=== PATIENT | female | born 1955 | race Native Hawaiian/Other Pacific Islander ===

== ENCOUNTER 2017-05-11 03:10 | Inpatient (IN) | payer BC ==
[~2017-05-11] VITALS: Ht 160 cm; Wt 63.5 kg
[~2017-05-11 03:10] MED LIST: AMLO5TAB4 PO; CLON0.1T PO
--- NOTE | 2017-05-11 03:40 | NUR ---
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 Her care continue as MD is at bedside . Addendum: 05/11/17 at 0608 by PRACHI Pt is noted ASA 324MG, [place] 0.4mg , 0.9NS IVF, O2 2LITER Nasal cannula, CXR done after an abnormal EKG. Her care continue as she is been admitted under DR. Shen.
[2017-05-11] MEDS ORDERED: methylPREDNISolone SOD SUCC 125 MG/2 ML VIAL IV ONE (03:47)
[2017-05-11] MEDS ORDERED: MORPHINE SULFATE 2 MG/1 ML DISP.SYRIN IV ONE (04:00)
[2017-05-11] MEDS ORDERED: IV NORMAL SALINE 500 ML IV ONE ×2 (04:00→11:20)
[2017-05-11] MEDS ORDERED: diphenhydrAMINE 50 MG/1 ML VIAL IV ONE (04:00)
[2017-05-11] MEDS ORDERED: ONDANSETRON IV *ER 4 MG/2 ML VIAL IV ONE (04:00)
[2017-05-11] MEDS ORDERED: methylPREDNISolone SOD SUCC 125 MG/2 ML VIAL ONE (04:08)
[2017-05-11] MEDS ORDERED: diphenhydrAMINE 50 MG/1 ML VIAL ONE (04:09)
[2017-05-11] MEDS ORDERED: ONDANSETRON 4 MG/2 ML VIAL ONE (04:10)
[2017-05-11] MEDS ORDERED: MORPHINE SULFATE 2 MG/1 ML DISP.SYRIN ONE (04:10)
--- NOTE | 2017-05-11 04:46 | NUR ---
Pt is noted sleeping with family at bedside as Bendry 50mg IVP, SOLU-MEDROL 60MG IVP, ZOFRAN 4MG IVP, MORPHINE 2MG IVP and 0.9ns IVF,which is effective with blood presures 137/82, HR65, 95% on room air, RR18. Her care continue.
--- NOTE | 2017-05-11 05:38 | NUR ---
Pt is noted with abnormal EKG and 02 2liter nasal cannular, IVF 09NS, ASA 32MG po, Nitroquick 0.4mg SL, Nitro-BID to kleft chest. Her care continue as she will be admitted under Hermelinda RUSS. Her care continue as report will be given to the receiving nurse.
[2017-05-11] MEDS ORDERED: NITROGLYCERIN OINT 1 GM PACKET TP ONE ×2 (05:45→06:04)
[2017-05-11] MEDS ORDERED: NITROGLYCERIN 0.4 MG/TAB BOTTLE SL ONE ×2 (05:45→06:03)
[2017-05-11] MEDS ORDERED: ASPIRIN 81 MG TAB.CHEW PO ONE (05:45)
[2017-05-11] MEDS ORDERED: ASPIRIN 81 MG TAB.CHEW ONE ×2 (05:52→06:03)
[2017-05-11] MEDS ORDERED: MAGNESIUM HYDROXIDE 30 ML LIQUID UDC PO PRN (06:00)
[2017-05-11] MEDS ORDERED: ONDANSETRON 4 MG/2 ML VIAL IV PRN (06:00)
[2017-05-11] MEDS ORDERED: HYDROCODONE/APAP 5-325MG TABLET PO PRN (06:00)
[2017-05-11] MEDS ORDERED: Z GUARD REMEDY PASTE 57 GM TUBE TOP PRN (06:00)
[2017-05-11] MEDS ORDERED: CLONIDINE HCL 0.1 MG TABLET PO PRN (06:00)
[2017-05-11 06:13] LABS: BASOPHILS % (AUTO) 0.1 % (0.0-2.0); BILIRUBIN,TOTAL 0.4 mg/dL (0.2-1.0); CREATININE 0.7 mg/dL (0.6-1.3); EOSINOPHILS # (AUTO) 0.2 K/uL (0.0-0.7); EOSINOPHILS % (AUTO) 3.3 % (0.0-7.0); HEMATOCRIT 44.7 % (37-47); LYMPHOCYTES # (AUTO) 2.2 K/UL (0.8-4.8); LYMPHOCYTES % (AUTO) 37.6 % (20.5-51.5); MEAN CORPUSCULAR HEMOGLOBIN 29.5 UUG (27.0-31.0); MEAN CORPUSCULAR HGB CONC 34 g/dL (32.0-37.0); MEAN CORPUSCULAR VOLUME 87.8 FL (81.0-99.0); MONOCYTES # (AUTO) 0.2 K/UL (0.1-1.30); MONOCYTES % (AUTO) 3.9 % (0.0-11.0); NEUTROPHILS # (AUTO) 3.1 K/UL (1.8-8.9); NEUTROPHILS % (AUTO) 55.1 % (38.5-71.5); PLATELET COUNT (AUTO) 192 K/UL (150-450); POTASSIUM 3.9 mmol/L (3.5-5.1); RED BLOOD CELL COUNT(AUTO) 5.09 MIL/UL (4.2-5.4); TOTAL PROTEIN, SERUM 7.5 g/dL (6.4-8.2); WHITE BLOOD COUNT (AUTO) 5.8 K/UL (4.0-11.2)
--- NOTE | 2017-05-11 06:26 | NUR ---
Report given to Leslie WARNER, patient going to Telemetry Room 214
--- NOTE | 2017-05-11 06:40 | NUR ---
Pt is noted off the unit she is been admitted to Tele 2nd floor room 214, she is stable during transfered. Her care continue.
[2017-05-11 06:41] LABS: *BILIRUBIN,URIN NEGATIVE (NEGATIVE); *BLOOD, URINE NEGATIVE (NEGATIVE); *COLOR,URINE YELLOW (YELLOW); *KETONES,URINE NEGATIVE (NEGATIVE); *PROTEIN,URINE NEGATIVE (NEGATIVE); *UROBILINOGEN,URINE 0.2 E.U./dl (NORMAL); LEUKOCYTE ESTERASE ,URINE 2+ (NEGATIVE); NITRITE, URINE NEGATIVE (NEGATIVE); PH,URINE 5.5 (5.0-8.0); UGLUCOSE NEGATIVE (NEGATIVE)
[2017-05-11 06:42] LABS: *CLARITY,URINE SLIGHTLY HAZY (CLEAR)
[2017-05-11 06:49] LABS: RBC,URINE 0-3 /HPF (0-3)
[2017-05-11 06:50] VITALS: BP 136/69
[2017-05-11 06:50] LABS: BACTERIA,URINE FEW /HPF (NONE SEEN); SQUAMOUS EPITHELIAL CELL,UR FEW /HPF (NONE SEEN)
--- NOTE | 2017-05-11 07:30 | NUR ---
received sleeping but easily aroused, at bedside, states headache very little, denies dof chest pain, no dizziness, rele applied, SR 80's, routine admission care rendered, assessment done, able to move all extremities well, safety measures maintained, call light within reach
[2017-05-11] MEDS: AMLODIPINE 5 MG TABLET PO SCH (09:32)
--- NOTE | 2017-05-11 10:00 | NUR ---
seen by Dr Marvin aguilera orders- pt informed of all tests to be done- verbalized understanding
[2017-05-11] MEDS ORDERED: IOHEXOL 350 100 ML INFUS..BTL ONE (11:19)
[2017-05-11] MEDS: IV NS 1000 ML 1,000 ML IV PRN (11:54)
[2017-05-11 11:56] VITALS: BP 115/55
[2017-05-11] MEDS: CEFTRIAXONE 1 G in IV DEXTROSE 5% 50 ML IV SCH (12:12)
--- NOTE | 2017-05-11 13:15 | NUR ---
to CT dept per w/c
--- NOTE | 2017-05-11 14:30 | NUR ---
back from CT- able to do CTA brain but not done with CTA chest- will keep NPO and notify CT dept when pt is ready for it
[2017-05-11] MEDS: ACETAMINOPHEN 325 MG TABLET PO PRN (15:08)
[2017-05-11 16:00] VITALS: BP 101/49
--- NOTE | 2017-05-11 17:00 | NUR ---
CTA chest done-tolerated well
--- NOTE | 2017-05-11 18:22 | NUR ---
resting in bed, frequent neuro assessment done- no change, tele SR, denies of chest pain, no dyspnea, all needs attended and met, call light within reach, at bedside
[2017-05-11 20:00] VITALS: BP 132/67
--- NOTE | 2017-05-11 21:00 | NUR ---
Pt received resting comfortably in bed, at bedside. vital signs wnl. Pt denies any pain at this time. IV fluids running in right forearm, intact and patent. Will continue to monitor for safety.
[2017-05-12] VITALS: BP 113/61
[2017-05-12 04:00] VITALS: BP 113/66
[2017-05-12] MEDS: IV NS 1000 ML 1,000 ML IV PRN (04:03)
--- NOTE | 2017-05-12 06:18 | NUR ---
Pt slept intermittently through out the night. at bedside. Tolerating IV fluids well. No acute distress noted.
[2017-05-12 06:49] LABS: BASOPHILS % (AUTO) 0.2 % (0.0-2.0); EOSINOPHILS % (AUTO) 0.2 % (0.0-7.0); LYMPHOCYTES # (AUTO) 3.2 K/UL (0.8-4.8); LYMPHOCYTES % (AUTO) 23.9 % (20.5-51.5); MEAN CORPUSCULAR HEMOGLOBIN 29.6 UUG (27.0-31.0); MEAN CORPUSCULAR HGB CONC 34 g/dL (32.0-37.0); MEAN CORPUSCULAR VOLUME 87.8 FL (81.0-99.0); MONOCYTES # (AUTO) 0.8 K/UL (0.1-1.30); MONOCYTES % (AUTO) 6.1 % (0.0-11.0); NEUTROPHILS # (AUTO) 9.2 K/UL (1.8-8.9); NEUTROPHILS % (AUTO) 69.6 % (38.5-71.5); PLATELET COUNT (AUTO) 179 K/UL (150-450)
[2017-05-12 06:52] LABS: HEMATOCRIT 37.1 % (37-47); HEMOGLOBIN 12.5 G/DL (12.0-16.0); RED BLOOD CELL COUNT(AUTO) 4.23 MIL/UL (4.2-5.4); WHITE BLOOD COUNT (AUTO) 13.2 K/UL (4.0-11.2)
[2017-05-12 06:54] LABS: CREATININE 0.7 mg/dL (0.6-1.3); MAGNESIUM 1.7 mg/dL (1.8-2.4); PHOSPHOROUS 3.7 mg/dL (2.5-4.9); POTASSIUM 3.7 mmol/L (3.5-5.1)
[2017-05-12 07:07] LABS: THYROID STIMULATING HORMONE 1.393 mIU/mL (0.358-3.740)
--- NOTE | 2017-05-12 08:00 | NUR ---
resting in bed, denies of chest pain, on room air, tele SR, informed of lab results and CT results per request, call light within reach, needs attended, at bedside
[2017-05-12] MEDS: AMLODIPINE 5 MG TABLET PO SCH (08:51)
[2017-05-12] MEDS: CEFTRIAXONE 1 G in IV DEXTROSE 5% 50 ML IV SCH (08:53)
[2017-05-12] MEDS: IV D5 1/2 NS 1000 ML 1,000 ML IV PRN ×2 (09:48→22:55)
[2017-05-12] MEDS: MAGNESIUM SULFATE/D5W 100 ML IV SCH ×2 (09:51→11:00)
[2017-05-12] MEDS ORDERED: VALS160T2 PO (10:36)
[2017-05-12 11:24] VITALS: BP 141/63
--- NOTE | 2017-05-12 15:30 | NUR ---
seen by Dr Lim- to have stress test tomorrow
[2017-05-12 15:55] VITALS: BP 136/75
--- NOTE | 2017-05-12 16:45 | NUR ---
instructed of no caffeine starting now and NPO after MN- verbalized understanding
--- NOTE | 2017-05-12 18:42 | NUR ---
no distress noted, frequent neuro assessment done- no change noted, up and about in the room, no chest pain, all needs attended and met, call light within reach
--- NOTE | 2017-05-12 19:30 | NUR ---
RECEIVED PATIENT LAYING IN BED. NO ACUTE DISTRESS NOTED. FAMILY AT BEDSIDE. A&O X4. IV ON THE RIGHT FA PATENT AND INTACT. AMBULATORY. SAFETY INITIATED. CALL LIGHT WITHIN REACH. WILL CONTINUE TO MONITOR.
[2017-05-12 20:00] VITALS: BP_SYST 145; BP_SYST 171; BP_DIAS 79; BP_DIAS 88
[2017-05-13 05:58] VITALS: BP 118/66
--- NOTE | 2017-05-13 06:30 | NUR ---
NO CHANGES T/O SHIFT. PATIENT REMAINS A&OX4. AT BEDSIDE. NO C/O CHEST PAIN OR SOB. SAFETY AND COMFORT MEASURES MAINTAINED T/O SHIFT. PATIENT REMAINS NPO AT THIS TIME. ALL NEEDS MET.
[2017-05-13 06:42] LABS: BASOPHILS % (AUTO) 0.5 % (0.0-2.0); EOSINOPHILS # (AUTO) 0.3 K/uL (0.0-0.7); EOSINOPHILS % (AUTO) 3.4 % (0.0-7.0); HEMATOCRIT 43.7 % (37-47); HEMOGLOBIN 14.7 G/DL (12.0-16.0); LYMPHOCYTES # (AUTO) 4.2 K/UL (0.8-4.8); LYMPHOCYTES % (AUTO) 48.8 % (20.5-51.5); MEAN CORPUSCULAR HEMOGLOBIN 29.7 UUG (27.0-31.0); MEAN CORPUSCULAR HGB CONC 34 g/dL (32.0-37.0); MEAN CORPUSCULAR VOLUME 88.1 FL (81.0-99.0); MONOCYTES # (AUTO) 0.5 K/UL (0.1-1.30); MONOCYTES % (AUTO) 5.6 % (0.0-11.0); NEUTROPHILS # (AUTO) 3.6 K/UL (1.8-8.9); NEUTROPHILS % (AUTO) 41.7 % (38.5-71.5); PLATELET COUNT (AUTO) 202 K/UL (150-450); RED BLOOD CELL COUNT(AUTO) 4.96 MIL/UL (4.2-5.4); WHITE BLOOD COUNT (AUTO) 8.6 K/UL (4.0-11.2)
[2017-05-13 07:11] LABS: CREATININE 0.7 mg/dL (0.6-1.3); MAGNESIUM 2.4 mg/dL (1.8-2.4); PHOSPHOROUS 3.8 mg/dL (2.5-4.9); POTASSIUM 3.6 mmol/L (3.5-5.1)
[2017-05-13] MEDS: AMLODIPINE 5 MG TABLET PO SCH (09:00)
[2017-05-13] MEDS: ASPIRIN EC 325 MG TABLET.DR PO SCH (09:15)
[2017-05-13] MEDS: CEFTRIAXONE 1 G in IV DEXTROSE 5% 50 ML IV SCH (10:49)
[2017-05-13] MEDS ORDERED: SULF1TAB48 PO (10:58)
[2017-05-13] MEDS ORDERED: ASPI-605 PO (10:58)
[2017-05-13] MEDS ORDERED: REGADENOSON 0.4 MG/5 ML PREFILLED SYR IV ONE (12:00)
[2017-05-13 12:45] VITALS: BP 144/83
[2017-05-13] MEDS: ACETAMINOPHEN 325 MG TABLET PO PRN (13:13)
[2017-05-13 16:04] VITALS: BP 124/65
--- NOTE | 2017-05-13 19:30 | NUR ---
RECEIVED PATIENT LAYING COMFORTABLY IN BED. NO ACUTE DISTRESS NOTED. A&O X4. FAMILY AT BEDSIDE. PLAN TO SEND TO [facility] FOR AN MRI TONIGHT. TRANSPORT ON THE WAY. IV ON THE LEFT AC #18 PATENT AND INTACT. AMBULATORY. NO C/O CHEST PAIN AND SOB. WILL CONTINUE TO MONITOR.
[2017-05-13 20:00] VITALS: BP 144/87
[2017-05-13] MEDS ORDERED: ATORVASTATIN 40 MG TABLET PO SCH (21:00)
--- NOTE | 2017-05-13 22:20 | NUR ---
PATIENT BACK FROM [facility]. VITAL SIGNS STABLE
[2017-05-14] MEDS: IV D5 1/2 NS 1000 ML 1,000 ML IV PRN (03:39)
--- NOTE | 2017-05-14 06:30 | NUR ---
NO CHANGES T/O SHIFT. AT BEDSIDE. VITAL SIGNS STABLE. ALL MEDS GIVEN ORDERED. ALL NEEDS MET. SAFETY AND COMFORT MEASURES MAINTAINED T/O SHIFT.
[2017-05-14 06:41] VITALS: BP 110/65
[2017-05-14] MEDS: ASPIRIN EC 325 MG TABLET.DR PO SCH (09:44)
[2017-05-14] MEDS: AMLODIPINE 5 MG TABLET PO SCH (09:45)
[2017-05-14] MEDS: CEFTRIAXONE 1 G in IV DEXTROSE 5% 50 ML IV SCH (09:46)
[2017-05-14 11:22] VITALS: BP 133/78
[2017-05-14] MEDS ORDERED: INFLUENZA VACCINE 2017-2018 0.5 ML DISP.SYRIN IM ONE (15:45)
[2017-05-14] MEDS ORDERED: OMEG1CAP PO (16:10)
[2017-05-14] MEDS ORDERED: SULF1TAB48 PO (16:10)
--- NOTE | 2017-05-14 16:51 | NUR ---
IV D/C'D. HOME INSTRUCTIONS REVIEWED WITH PT. FLU SHOT GIVEN. DISCHARGED TO TO HOME
== END 2017-05-14 16:45 | disposition home or self-care (01) | DRG 206 ==
LOC: ER 03:16 → TELE 05:30 → MED 05-12 14:48
DX: M94.0 Chondrocostal junction syndrome [Tietze] (principal); E87.0 Hyperosmolality and hypernatremia; N39.0 Urinary tract infection, site not specified; I10 Essential (primary) hypertension; G43.909 Migraine, unspecified, not intractable, without status migrainosus; K59.00 Constipation, unspecified; Q63.1 Lobulated, fused and horseshoe kidney; F41.9 Anxiety disorder, unspecified; B96.89 Other specified bacterial agents as the cause of diseases classified elsewhere; E78.5 Hyperlipidemia, unspecified
CPT/HCPCS: 36415; 70030-TC; 70450; 70496; 70551; 71010; 78452; 83735; 84100; 84443; 85025; 85610; 87040; 87086; 90686; 93005; 93307; A4663; A9502; J0696; J1200; J2270; J2405; J2785; J2930; J3475; J3490; J7030; J7050; J7060; Q9967

== ENCOUNTER 2018-05-13 07:33 | Outpatient (CLI) | payer BC, OTHER ==
[~2018-05-13 07:33] MED LIST changes: +ASPI-605 PO; -CLON0.1T PO; +OMEG1CAP PO; +SULF1TAB48 PO; +VALS160T2 PO
[2018-05-15 06:37] LABS: BASOPHILS % (AUTO) 0.6 % (0.0-2.0); EOSINOPHILS # (AUTO) 0.2 K/uL (0.0-0.7); EOSINOPHILS % (AUTO) 2.9 % (0.0-7.0); HEMATOCRIT 40.8 % (31.2-41.9); HEMOGLOBIN 14.1 g/dL (10.9-14.3); LYMPHOCYTES # (AUTO) 2.8 K/uL (20.0-40.0); LYMPHOCYTES % (AUTO) 50.2 % (20.5-51.5); MEAN CORPUSCULAR HGB CONC 35 g/dL (32.3-35.6); MEAN CORPUSCULAR VOLUME 89.9 fL (75.5-95.3); MONOCYTES # (AUTO) 0.4 K/uL (2.0-10.0); MONOCYTES % (AUTO) 7.5 % (0.0-11.0); NEUTROPHILS # (AUTO) 2.2 K/uL (1.8-8.9); NEUTROPHILS % (AUTO) 38.8 % (38.5-71.5); PLATELET COUNT (AUTO) 191 K/uL (179-408); RED BLOOD CELL COUNT(AUTO) 4.53 MIL/uL (3.63-4.92); WHITE BLOOD COUNT (AUTO) 5.7 K/uL (3.8-11.8)
[2018-05-15 06:50] LABS: BILIRUBIN,TOTAL 0.4 mg/dL (0.2-1.0); CREATININE 0.7 mg/dL (0.6-1.3); POTASSIUM 3.5 mmol/L (3.5-5.1); TOTAL PROTEIN, SERUM 7.6 g/dL (6.4-8.2)
[2018-05-15 06:57] LABS: THYROID STIMULATING HORMONE 6.122 mIU/mL (0.358-3.740)
[2018-05-15 07:45] LABS: *BILIRUBIN,URIN NEGATIVE (NEGATIVE); *BLOOD, URINE Trace-lysed (NEGATIVE); *CLARITY,URINE CLEAR (CLEAR); *COLOR,URINE YELLOW (YELLOW); *KETONES,URINE NEGATIVE (NEGATIVE); *PROTEIN,URINE NEGATIVE (NEGATIVE); *UROBILINOGEN,URINE 0.2 E.U./dl (NORMAL); LEUKOCYTE ESTERASE ,URINE 1+ (NEGATIVE); NITRITE, URINE NEGATIVE (NEGATIVE); PH,URINE 5.5 (5.0-8.0); UGLUCOSE NEGATIVE (NEGATIVE)
[2018-05-15 08:22] LABS: BACTERIA,URINE FEW /HPF (NONE SEEN); CALCIUM OXALATE CRYSTALS,UR FEW /HPF (NONE SEEN); SQUAMOUS EPITHELIAL CELL,UR FEW /HPF (NONE SEEN)
[2018-05-15 09:23] LABS: *RHEUMATOID FACTOR SCREEN NEGATIVE (NEGATIVE)
[2018-05-16 09:21] LABS: *OCCULT BLOOD STOOL NEGATIVE (NEGATIVE)
[2018-05-18 19:07] LABS: *VITAMIN D 25-OH VIT D 29 ng/mL (.); *VITAMIN D 25-OH, D2 <1.0 ng/mL (.); *VITAMIN D 25-OH, D3 29 ng/mL (.)
== END 2018-05-13 23:59 | disposition home or self-care (01) ==
LOC: LAB 07:33
PROVIDERS: ATTEND Internal Medicine
DX: I10 Essential (primary) hypertension (principal)
CPT/HCPCS: 36415; 84443; 85025; 86430

== ENCOUNTER 2019-10-01 07:52 | Outpatient (CLI) | payer BC, OTHER ==
[2019-10-01 09:41] LABS: BASOPHILS % (AUTO) 0.6 % (0.0-2.0); EOSINOPHILS # (AUTO) 0.2 K/uL (0.0-0.7); EOSINOPHILS % (AUTO) 3.3 % (0.0-7.0); HEMATOCRIT 40.9 % (31.2-41.9); HEMOGLOBIN 13.6 g/dL (10.9-14.3); LYMPHOCYTES # (AUTO) 2.5 K/uL (20.0-40.0); LYMPHOCYTES % (AUTO) 40.9 % (20.5-51.5); MEAN CORPUSCULAR HEMOGLOBIN 29.8 uug (24.7-32.8); MEAN CORPUSCULAR HGB CONC 33 g/dL (32.3-35.6); MEAN CORPUSCULAR VOLUME 89.7 fL (75.5-95.3); MONOCYTES # (AUTO) 0.4 K/uL (2.0-10.0); MONOCYTES % (AUTO) 6.6 % (0.0-11.0); NEUTROPHILS # (AUTO) 2.9 K/uL (1.8-8.9); NEUTROPHILS % (AUTO) 48.6 % (38.5-71.5); PLATELET COUNT (AUTO) 172 K/uL (179-408); RED BLOOD CELL COUNT(AUTO) 4.56 MIL/uL (3.63-4.92)
[2019-10-01 10:16] LABS: BILIRUBIN,TOTAL 0.5 mg/dL (0.2-1.0); CREATININE 0.7 mg/dL (0.6-1.3); POTASSIUM 4.1 mmol/L (3.5-5.1); TOTAL PROTEIN, SERUM 7.5 g/dL (6.4-8.2)
[2019-10-01 10:30] LABS: *BILIRUBIN,URIN NEGATIVE (NEGATIVE); *BLOOD, URINE NEGATIVE (NEGATIVE); *CLARITY,URINE CLEAR (CLEAR); *COLOR,URINE YELLOW (YELLOW); *KETONES,URINE NEGATIVE (NEGATIVE); *UROBILINOGEN,URINE 0.2 E.U./dl (NORMAL); LEUKOCYTE ESTERASE ,URINE NEGATIVE (NEGATIVE); NITRITE, URINE NEGATIVE (NEGATIVE); PH,URINE 5.5 (5.0-8.0); UGLUCOSE NEGATIVE (NEGATIVE)
[2019-10-01 10:50] LABS: THYROID STIMULATING HORMONE 4.213 mIU/mL (0.358-3.740)
== END 2019-10-01 23:59 | disposition home or self-care (01) ==
LOC: LAB 07:52
PROVIDERS: ATTEND Internal Medicine
DX: I10 Essential (primary) hypertension (principal)
CPT/HCPCS: 36415; 82306; 84443; 85025; 86900; 86901

== ENCOUNTER 2020-02-03 06:44 | Outpatient (CLI) | payer BC, OTHER ==
[2020-02-03 08:19] LABS: BASOPHILS % (AUTO) 0.5 % (0.0-2.0); EOSINOPHILS # (AUTO) 0.2 K/uL (0.0-0.7); EOSINOPHILS % (AUTO) 3.2 % (0.0-7.0); HEMATOCRIT 39.3 % (31.2-41.9); HEMOGLOBIN 13.3 g/dL (10.9-14.3); LYMPHOCYTES # (AUTO) 2.5 K/uL (20.0-40.0); LYMPHOCYTES % (AUTO) 45.6 % (20.5-51.5); MEAN CORPUSCULAR HEMOGLOBIN 29.9 uug (24.7-32.8); MEAN CORPUSCULAR HGB CONC 34 g/dL (32.3-35.6); MEAN CORPUSCULAR VOLUME 88.7 fL (75.5-95.3); MONOCYTES # (AUTO) 0.3 K/uL (2.0-10.0); MONOCYTES % (AUTO) 5.8 % (0.0-11.0); NEUTROPHILS # (AUTO) 2.5 K/uL (1.8-8.9); NEUTROPHILS % (AUTO) 44.9 % (38.5-71.5); PLATELET COUNT (AUTO) 193 K/uL (179-408); RED BLOOD CELL COUNT(AUTO) 4.43 MIL/uL (3.63-4.92); WHITE BLOOD COUNT (AUTO) 5.6 K/uL (3.8-11.8)
[2020-02-03 08:37] LABS: THYROID STIMULATING HORMONE 3.544 mIU/mL (0.358-3.740)
[2020-02-03 08:54] LABS: BILIRUBIN,TOTAL 0.3 mg/dL (0.2-1.0); CREATININE 0.8 mg/dL (0.6-1.3); TOTAL PROTEIN, SERUM 7.2 g/dL (6.4-8.2)
[2020-02-03 12:32] LABS: *BILIRUBIN,URIN NEGATIVE (NEGATIVE); *BLOOD, URINE NEGATIVE (NEGATIVE); *CLARITY,URINE SLIGHTLY CLOUDY (CLEAR); *COLOR,URINE YELLOW (YELLOW); *KETONES,URINE NEGATIVE (NEGATIVE); *UROBILINOGEN,URINE 0.2 E.U./dl (NORMAL); LEUKOCYTE ESTERASE ,URINE NEGATIVE (NEGATIVE); NITRITE, URINE NEGATIVE (NEGATIVE); PH,URINE 8.5 (5.0-8.0); UGLUCOSE NEGATIVE (NEGATIVE)
[2020-02-03 14:33] LABS: RBC,URINE 0-3 /HPF (0-3); WBC,URINE 0-3 /HPF (0-3)
[2020-02-03 14:34] LABS: BACTERIA,URINE FEW /HPF (NONE SEEN); SQUAMOUS EPITHELIAL CELL,UR FEW /HPF (NONE SEEN)
[2020-02-03 14:38] LABS: URINE AMORPHOUS PHOSPHATES MODERATE /HPF
[2020-02-05 10:34] LABS: *OCCULT BLOOD STOOL NEGATIVE (NEGATIVE)
== END 2020-02-03 23:59 | disposition home or self-care (01) ==
LOC: LAB 06:44
PROVIDERS: ATTEND Internal Medicine
DX: D64.9 Anemia, unspecified (principal); E55.9 Vitamin D deficiency, unspecified
CPT/HCPCS: 83550; 84443; 85025

== ENCOUNTER 2020-06-14 07:43 | Outpatient (CLI) | payer BC, OTHER ==
[2020-06-14 08:08] LABS: BASOPHILS % (AUTO) 0.5 % (0.0-2.0); EOSINOPHILS # (AUTO) 0.1 K/uL (0.0-0.7); EOSINOPHILS % (AUTO) 1.7 % (0.0-7.0); HEMATOCRIT 41.8 % (31.2-41.9); HEMOGLOBIN 14.3 g/dL (10.9-14.3); LYMPHOCYTES # (AUTO) 2.4 K/uL (20.0-40.0); LYMPHOCYTES % (AUTO) 37.1 % (20.5-51.5); MEAN CORPUSCULAR HEMOGLOBIN 30.6 uug (24.7-32.8); MEAN CORPUSCULAR HGB CONC 34 g/dL (32.3-35.6); MEAN CORPUSCULAR VOLUME 89.6 fL (75.5-95.3); MONOCYTES # (AUTO) 0.4 K/uL (2.0-10.0); MONOCYTES % (AUTO) 6.1 % (0.0-11.0); NEUTROPHILS # (AUTO) 3.5 K/uL (1.8-8.9); NEUTROPHILS % (AUTO) 54.6 % (38.5-71.5); PLATELET COUNT (AUTO) 184 K/uL (179-408); RED BLOOD CELL COUNT(AUTO) 4.66 MIL/uL (3.63-4.92); WHITE BLOOD COUNT (AUTO) 6.4 K/uL (3.8-11.8)
[2020-06-14 08:26] LABS: THYROID STIMULATING HORMONE 3.195 mIU/mL (0.358-3.740)
[2020-06-14 08:44] LABS: BILIRUBIN,TOTAL 0.2 mg/dL (0.2-1.0); POTASSIUM 4.2 mmol/L (3.5-5.1); TOTAL PROTEIN, SERUM 7.4 g/dL (6.4-8.2); URIC ACID 4.8 mg/dL (2.6-6.0)
== END 2020-06-14 23:59 | disposition home or self-care (01) ==
LOC: LAB 07:43
PROVIDERS: ATTEND Legal Medicine
DX: I10 Essential (primary) hypertension (principal); E03.9 Hypothyroidism, unspecified; E11.9 Type 2 diabetes mellitus without complications; D64.9 Anemia, unspecified; E55.9 Vitamin D deficiency, unspecified; Z00.00 Encounter for general adult medical examination without abnormal findings
CPT/HCPCS: 82306; 83550; 84443; 84550; 85025

== ENCOUNTER 2020-07-25 14:33 | Outpatient (CLI) | payer BC, OTHER | END 2020-07-25 23:59 | disposition home or self-care (01) | LOC: LAB 14:33 | PROVIDERS: ATTEND Legal Medicine | DX: M19.071 Primary osteoarthritis, right ankle and foot (principal); M77.31 Calcaneal spur, right foot; W19.XXXA Unspecified fall, initial encounter; Y93.89 Activity, other specified; Y92.89 Other specified places as the place of occurrence of the external cause; Y99.8 Other external cause status | CPT/HCPCS: 73610; 73630 ==

== ENCOUNTER → 2020-10-29 | Outpatient (CLI) | payer BC, OTHER | END | disposition home or self-care (01) | LOC: RAD 07:35 | PROVIDERS: ATTEND Legal Medicine | DX: I51.7 Cardiomegaly (principal); M41.85 Other forms of scoliosis, thoracolumbar region; R07.9 Chest pain, unspecified | CPT/HCPCS: 71046; 93005 ==

== ENCOUNTER → 2020-10-29 | Outpatient (CLI) | payer BC, OTHER ==
[2020-10-29 08:17] LABS: BASOPHILS % (AUTO) 0.5 % (0.0-2.0); EOSINOPHILS # (AUTO) 0.2 K/uL (0.0-0.7); EOSINOPHILS % (AUTO) 2.7 % (0.0-7.0); HEMATOCRIT 40.6 % (31.2-41.9); LYMPHOCYTES # (AUTO) 2.3 K/uL (20.0-40.0); LYMPHOCYTES % (AUTO) 35.1 % (20.5-51.5); MEAN CORPUSCULAR HEMOGLOBIN 30.5 uug (24.7-32.8); MEAN CORPUSCULAR HGB CONC 35 g/dL (32.3-35.6); MEAN CORPUSCULAR VOLUME 88.3 fL (75.5-95.3); MONOCYTES # (AUTO) 0.5 K/uL (2.0-10.0); MONOCYTES % (AUTO) 7.1 % (0.0-11.0); NEUTROPHILS # (AUTO) 3.6 K/uL (1.8-8.9); NEUTROPHILS % (AUTO) 54.6 % (38.5-71.5); PLATELET COUNT (AUTO) 190 K/uL (179-408); RED BLOOD CELL COUNT(AUTO) 4.61 MIL/uL (3.63-4.92); WHITE BLOOD COUNT (AUTO) 6.6 K/uL (3.8-11.8)
[2020-10-29 08:34] LABS: BILIRUBIN,TOTAL 0.6 mg/dL (0.2-1.0); CREATININE 0.8 mg/dL (0.6-1.3); POTASSIUM 3.5 mmol/L (3.5-5.1); TOTAL PROTEIN, SERUM 7.3 g/dL (6.4-8.2)
[2020-10-29 13:24] LABS: THYROID STIMULATING HORMONE 3.666 mIU/mL (0.358-3.740)
== END | disposition home or self-care (01) ==
LOC: LAB 07:31
PROVIDERS: ATTEND Legal Medicine
DX: E78.5 Hyperlipidemia, unspecified (principal)
CPT/HCPCS: 36415; 70030-TC; 84443; 85025

== ENCOUNTER 2020-12-22 07:48 | Outpatient (CLI) | payer BC, OTHER ==
[2020-12-22 08:25] LABS: BASOPHILS % (AUTO) 0.6 % (0.0-2.0); EOSINOPHILS # (AUTO) 0.2 K/uL (0.0-0.7); EOSINOPHILS % (AUTO) 2.4 % (0.0-7.0); HEMATOCRIT 42.5 % (31.2-41.9); HEMOGLOBIN 14.3 g/dL (10.9-14.3); LYMPHOCYTES # (AUTO) 2.6 K/uL (20.0-40.0); LYMPHOCYTES % (AUTO) 37.9 % (20.5-51.5); MEAN CORPUSCULAR HEMOGLOBIN 29.8 uug (24.7-32.8); MEAN CORPUSCULAR HGB CONC 34 g/dL (32.3-35.6); MEAN CORPUSCULAR VOLUME 88.6 fL (75.5-95.3); MONOCYTES # (AUTO) 0.4 K/uL (2.0-10.0); MONOCYTES % (AUTO) 5.3 % (0.0-11.0); NEUTROPHILS # (AUTO) 3.7 K/uL (1.8-8.9); NEUTROPHILS % (AUTO) 53.8 % (38.5-71.5); PLATELET COUNT (AUTO) 192 K/uL (179-408); RED BLOOD CELL COUNT(AUTO) 4.79 MIL/uL (3.63-4.92); WHITE BLOOD COUNT (AUTO) 6.9 K/uL (3.8-11.8)
[2020-12-22 08:38] LABS: POTASSIUM 3.7 mmol/L (3.5-5.1)
[2020-12-22 08:49] LABS: *BILIRUBIN,URIN NEGATIVE (NEGATIVE); *BLOOD, URINE NEGATIVE (NEGATIVE); *CLARITY,URINE CLEAR (CLEAR); *COLOR,URINE YELLOW (YELLOW); *KETONES,URINE NEGATIVE (NEGATIVE); *UROBILINOGEN,URINE 0.2 E.U./dl (NORMAL); LEUKOCYTE ESTERASE ,URINE TRACE (NEGATIVE); NITRITE, URINE NEGATIVE (NEGATIVE); PH,URINE 5.5 (5.0-8.0); UGLUCOSE NEGATIVE (NEGATIVE)
[2020-12-22 14:30] LABS: RBC,URINE NONE SEEN /HPF (0-3); URINE AMORPHOUS URATE MANY /HPF
[2020-12-22 14:31] LABS: BACTERIA,URINE NONE SEEN /HPF (NONE SEEN); SQUAMOUS EPITHELIAL CELL,UR NONE SEEN /HPF (NONE SEEN)
== END 2020-12-22 23:59 | disposition home or self-care (01) ==
LOC: RAD 07:48
PROVIDERS: ATTEND Legal Medicine
DX: Z01.818 Encounter for other preprocedural examination (principal)
CPT/HCPCS: 71046; 85025; 85610; 85730; 87086

== ENCOUNTER 2020-12-26 06:26 | Outpatient (CLI) | payer BC, OTHER | END 2020-12-26 23:59 | disposition home or self-care (01) | LOC: LAB 06:26 | PROVIDERS: ATTEND Ophthalmology | DX: Z01.812 Encounter for preprocedural laboratory examination (principal); Z20.822 Contact with and (suspected) exposure to COVID-19 ==

== ENCOUNTER 2020-12-28 07:44 | Observation (INO) | payer BC, OTHER ==
[~2020-12-28] VITALS: Ht 160 cm; Wt 66.2 kg
[~2020-12-28 07:44] MED LIST changes: +BALANCED SALT IRRIG SOLN COMB1 500 ML, EPINEPHRINE-PF 1:1000 0.5 MG IO ONE
[2020-12-28] MEDS ORDERED: FAMOTIDINE. 20 MG/2 ML VIAL IV ONE (07:45)
[2020-12-28] MEDS ORDERED: KETOROLAC 0.5% OPHT DROP 3 ML BOTTLE ONE (08:21)
[2020-12-28] MEDS ORDERED: PHENYLEPHRINE 2.5% OPHT DROP 2 ML BOTTLE ONE (08:22)
[2020-12-28] MEDS ORDERED: TROPICAMIDE 1% OPHT DROP 3 ML BOTTLE ONE (08:22)
[2020-12-28] MEDS ORDERED: CIPROFLOXACIN 0.3% OPHT DROP 2.5 ML BOTTLE ONE (08:22)
[2020-12-28] MEDS ORDERED: CYCLOPENTOLATE 2% OPHT DROP 2 ML BOTTLE ONE (08:22)
[2020-12-28] MEDS ORDERED: PROPARACAINE 0.5% OPHT DROP 15 ML BOTTLE ONE (08:28)
[2020-12-28] MEDS ORDERED: MOXIFLOXACIN HCL 3 ML OPHT DROPS ONE (09:27)
[2020-12-28] MEDS ORDERED: TETRACAINE HCL 0.5% OPHT DROP 2 ML BOTTLE ONE (09:27)
[2020-12-28] MEDS ORDERED: ACETYLCHOLINE CHLORIDE 1% OPHT 1 EA KIT ONE (09:27)
[2020-12-28] MEDS ORDERED: LIDOCAINE HCL-MPF 1% 5 ML VIAL ONE (09:27)
[2020-12-28] MEDS ORDERED: BALANCED SALT IRRIG SOLN COMB2 15 ML IRRIG.SOLN ONE (09:38)
[2020-12-28] MEDS ORDERED: FENTANYL CITRATE 100 MCG/2 ML AMPUL ONE (09:45)
[2020-12-28] MEDS ORDERED: BALANCED SALT IRRIG SOLN COMB1 500 ML ONE (10:48)
[2020-12-28] MEDS ORDERED: SODIUM CITRATE PO ONE (12:15)
[2020-12-28] MEDS ORDERED: CITRIC ACID PO ONE (12:15)
[2020-12-28 13:30] VITALS: BP 134/74
--- NOTE | 2020-12-28 13:30 | NUR ---
received pt from surgery. pt went in for left cataract extraction, however complained of chest pain/pressure while in surgery. pt admitted in stable condition, on tele monitoring. NSR on the monitor. pt alert & oriented x4. pt currently on 2L oxygen via [place]. VSS.
[2020-12-28] MEDS ORDERED: ACETAMINOPHEN 325 MG TABLET PO PRN (14:45)
[2020-12-28] MEDS ORDERED: MAGNESIUM HYDROXIDE 30 ML LIQUID UDC PO PRN (14:45)
[2020-12-28] MEDS ORDERED: HYDROCODONE/APAP 5-325MG TABLET PO PRN (14:45)
[2020-12-28] MEDS ORDERED: MORPHINE SULFATE 2 MG/1 ML DISP.SYRIN IV PRN (14:45)
[2020-12-28] MEDS ORDERED: ONDANSETRON 4 MG/2 ML VIAL IV PRN (14:45)
[2020-12-28] MEDS ORDERED: ZOLPIDEM 5 MG TABLET PO PRN (14:45)
[2020-12-28] MEDS ORDERED: ASPIRIN 325 MG TABLET PO ONE (15:00)
[2020-12-28 15:42] LABS: BASOPHILS % (AUTO) 0.5 % (0.0-2.0); EOSINOPHILS # (AUTO) 0.1 K/uL (0.0-0.7); EOSINOPHILS % (AUTO) 2.3 % (0.0-7.0); HEMATOCRIT 41.9 % (31.2-41.9); HEMOGLOBIN 14.1 g/dL (10.9-14.3); LYMPHOCYTES # (AUTO) 2.7 K/uL (20.0-40.0); LYMPHOCYTES % (AUTO) 42.3 % (20.5-51.5); MEAN CORPUSCULAR HEMOGLOBIN 29.7 uug (24.7-32.8); MEAN CORPUSCULAR HGB CONC 34 g/dL (32.3-35.6); MEAN CORPUSCULAR VOLUME 88.6 fL (75.5-95.3); MONOCYTES # (AUTO) 0.3 K/uL (2.0-10.0); MONOCYTES % (AUTO) 4.7 % (0.0-11.0); NEUTROPHILS # (AUTO) 3.2 K/uL (1.8-8.9); NEUTROPHILS % (AUTO) 50.2 % (38.5-71.5); PLATELET COUNT (AUTO) 180 K/uL (179-408); RED BLOOD CELL COUNT(AUTO) 4.73 MIL/uL (3.63-4.92); WHITE BLOOD COUNT (AUTO) 6.5 K/uL (3.8-11.8)
[2020-12-28 15:54] LABS: BILIRUBIN,TOTAL 0.8 mg/dL (0.2-1.0); CREATININE 0.7 mg/dL (0.6-1.3); MAGNESIUM 2.1 mg/dL (1.8-2.4); PHOSPHOROUS 3.2 mg/dL (2.5-4.9); POTASSIUM 3.3 mmol/L (3.5-5.1); TOTAL PROTEIN, SERUM 6.9 g/dL (6.4-8.2)
[2020-12-28 15:56] LABS: THYROID STIMULATING HORMONE 2.518 mIU/mL (0.358-3.740)
[2020-12-28 16:12] VITALS: BP 126/58
[2020-12-28 20:00] VITALS: BP 127/58
[2020-12-29] VITALS: BP 115/57
[2020-12-29 04:00] VITALS: BP 106/50
[2020-12-29 06:36] LABS: BASOPHILS % (AUTO) 0.5 % (0.0-2.0); EOSINOPHILS # (AUTO) 0.1 K/uL (0.0-0.7); EOSINOPHILS % (AUTO) 2.3 % (0.0-7.0); HEMATOCRIT 40.3 % (31.2-41.9); HEMOGLOBIN 13.7 g/dL (10.9-14.3); LYMPHOCYTES # (AUTO) 2.4 K/uL (20.0-40.0); MEAN CORPUSCULAR HEMOGLOBIN 30.2 uug (24.7-32.8); MEAN CORPUSCULAR HGB CONC 34 g/dL (32.3-35.6); MEAN CORPUSCULAR VOLUME 88.5 fL (75.5-95.3); MONOCYTES # (AUTO) 0.4 K/uL (2.0-10.0); MONOCYTES % (AUTO) 6.5 % (0.0-11.0); NEUTROPHILS # (AUTO) 3.5 K/uL (1.8-8.9); NEUTROPHILS % (AUTO) 53.7 % (38.5-71.5); PLATELET COUNT (AUTO) 181 K/uL (179-408); RED BLOOD CELL COUNT(AUTO) 4.55 MIL/uL (3.63-4.92); WHITE BLOOD COUNT (AUTO) 6.5 K/uL (3.8-11.8)
--- NOTE | 2020-12-29 06:36 | NUR ---
Pt slept throughout the night. Denies SOB or chest pain. Only reports some chest "pressure." No distress noted. SR on monitor. at bedside throughout the night. Safety and comfort provided. No other issues or concerns at this time, will endorse to day shift.
[2020-12-29 07:05] LABS: CREATININE 0.8 mg/dL (0.6-1.3); PHOSPHOROUS 3.7 mg/dL (2.5-4.9); POTASSIUM 3.8 mmol/L (3.5-5.1)
[2020-12-29] MEDS ORDERED: VALSARTAN 160 MG TABLET PO SCH (09:00)
[2020-12-29] MEDS ORDERED: AMLODIPINE 5 MG TABLET PO SCH (09:00)
[2020-12-29 10:38] VITALS: BP 157/85
[2020-12-29] MEDS ORDERED: ATOR20TA PO (12:32)
--- NOTE | 2020-12-29 13:24 | NUR ---
dc orders received noted and carried out, dc heplock per md orders.dc instruction and education given to the pt pt said she will follow up with her pcp and applied psychology professor,pt left the facility via private car in stable condition
== END 2020-12-29 13:29 | disposition home or self-care (01) ==
LOC: DS 07:44 → TELE3 13:59
PROVIDERS: ADMIT Ophthalmology; ATTEND Nurse Practitioner Acute Care
PROC: 08RK3JZ Replacement of Left Lens with Synthetic Substitute, Percutaneous Approach (ICD-10-PCS; principal; 2020-12-28)
DX: H25.12 Age-related nuclear cataract, left eye (principal); H52.202 Unspecified astigmatism, left eye; R07.9 Chest pain, unspecified; I10 Essential (primary) hypertension
CPT/HCPCS: 36415 ×2; 66984; 80048; 80053; 80061; 83036; 83735; 83880; 84100 ×2; 84443; 84484 ×2; 85025 ×2; 93005; G0378 ×23; J0171; J3010; J3490 ×2; J7120; V2632; 70030-TC; 71046; A4663

== ENCOUNTER 2021-05-13 07:47 | Outpatient (CLI) | payer BC, OTHER ==
[~2021-05-13 07:47] MED LIST changes: +ATOR20TA PO; -BALANCED SALT IRRIG SOLN COMB1 500 ML, EPINEPHRINE-PF 1:1000 0.5 MG IO ONE; -SULF1TAB48 PO
[2021-05-13 08:36] LABS: *BILIRUBIN,URIN NEGATIVE (NEGATIVE); *CLARITY,URINE CLEAR (CLEAR); *COLOR,URINE YELLOW (YELLOW); *KETONES,URINE NEGATIVE (NEGATIVE); *UROBILINOGEN,URINE 0.2 E.U./dl (NORMAL); LEUKOCYTE ESTERASE ,URINE TRACE (NEGATIVE); NITRITE, URINE NEGATIVE (NEGATIVE); UGLUCOSE NEGATIVE (NEGATIVE)
[2021-05-13 08:38] LABS: HEMATOCRIT 42.8 % (31.2-41.9); MEAN CORPUSCULAR HEMOGLOBIN 30.4 uug (24.7-32.8); MEAN CORPUSCULAR VOLUME 89.8 fL (75.5-95.3); PLATELET COUNT (AUTO) 190 K/uL (179-408)
[2021-05-13 08:44] LABS: *BLOOD, URINE TRACE (NEGATIVE)
[2021-05-13 08:50] LABS: IRON, SERUM 101 ug/dL (50-175)
[2021-05-13 08:59] LABS: THYROID STIMULATING HORMONE 3.577 mIU/mL (0.358-3.740)
[2021-05-13 09:42] LABS: MUCUS,URINE MODERATE /LPF (0-FEW)
[2021-05-13 09:43] LABS: SQUAMOUS EPITHELIAL CELL,UR NONE SEEN /HPF (NONE SEEN)
[2021-05-13 09:45] LABS: BACTERIA,URINE FEW /HPF (NONE SEEN)
[2021-05-13 09:46] LABS: ALANINE AMINOTRANSFERASE 27 U/L (14-59); ALKALINE PHOSPHATASE 58 U/L (50-136); ASPARTATE AMINOTRANSFERASE 17 U/L (15-37); BILIRUBIN,TOTAL 0.7 mg/dL (0.2-1.0); CARBON DIOXIDE 29 mmol/L (21-32); CHLORIDE 107 mmol/L (98-107); CHOLESTEROL 163 mg/dL (<200); CREATININE 0.7 mg/dL (0.6-1.3); GLUCOSE 131 mg/dL (74-106); HDL CHOLESTEROL 43 mg/dL (40-60); POTASSIUM 4.4 mmol/L (3.5-5.1); TOTAL PROTEIN, SERUM 7.7 g/dL (6.4-8.2); TRIGLYCERIDES 151 MG/DL (30-150); UREA NITROGEN, BLOOD 11 mg/dL (7-18); URIC ACID 6.3 mg/dL (2.6-6.0)
[2021-05-13 10:03] LABS: CREATINE KINASE, TOTAL 51 U/L (26-192)
== END 2021-05-13 23:59 | disposition home or self-care (01) ==
LOC: LAB 07:47
PROVIDERS: ATTEND Legal Medicine
DX: I12.9 Hypertensive chronic kidney disease with stage 1 through stage 4 chronic kidney disease, or unspecified chronic kidney disease (principal); E11.22 Type 2 diabetes mellitus with diabetic chronic kidney disease; N18.9 Chronic kidney disease, unspecified; E78.5 Hyperlipidemia, unspecified; E03.9 Hypothyroidism, unspecified; D64.9 Anemia, unspecified; E55.9 Vitamin D deficiency, unspecified; R53.1 Weakness; Z00.00 Encounter for general adult medical examination without abnormal findings
CPT/HCPCS: 36415; 82746; 83550; 84443; 84550; 85025; 85651; 86140

== ENCOUNTER 2022-03-27 07:48 | Outpatient (CLI) | payer BC, OTHER ==
[2022-03-27 08:27] LABS: *BILIRUBIN,URIN NEGATIVE (NEGATIVE); *BLOOD, URINE NEGATIVE (NEGATIVE); *CLARITY,URINE CLEAR (CLEAR); *COLOR,URINE YELLOW (YELLOW); *KETONES,URINE NEGATIVE (NEGATIVE); *UROBILINOGEN,URINE 0.2 E.U./dl (NORMAL); LEUKOCYTE ESTERASE ,URINE 1+ (NEGATIVE); NITRITE, URINE NEGATIVE (NEGATIVE); PH,URINE 5.5 (5.0-8.0); UGLUCOSE NEGATIVE (NEGATIVE)
[2022-03-27 08:35] LABS: HEMATOCRIT 43.4 % (31.2-41.9); MEAN CORPUSCULAR HEMOGLOBIN 30.7 uug (24.7-32.8); MEAN CORPUSCULAR VOLUME 89.9 fL (75.5-95.3); PLATELET COUNT (AUTO) 214 K/uL (179-408)
[2022-03-27 09:44] LABS: IRON, SERUM 43 ug/dL (50-175)
[2022-03-27 10:08] LABS: ALANINE AMINOTRANSFERASE 31 U/L (14-59); ALKALINE PHOSPHATASE 63 U/L (50-136); BILIRUBIN,TOTAL 0.4 mg/dL (0.2-1.0); CARBON DIOXIDE 29 mmol/L (21-32); CHLORIDE 105 mmol/L (98-107); CHOLESTEROL 176 mg/dL (<200); CREATININE 0.9 mg/dL (0.6-1.3); GLUCOSE 144 mg/dL (74-106); HDL CHOLESTEROL 30 mg/dL (40-60); POTASSIUM 4.3 mmol/L (3.5-5.1); TOTAL PROTEIN, SERUM 7.7 g/dL (6.4-8.2); TRIGLYCERIDES 660 MG/DL (30-150); UREA NITROGEN, BLOOD 17 mg/dL (7-18); URIC ACID 6.7 mg/dL (2.6-6.0)
[2022-03-27 10:18] LABS: ASPARTATE AMINOTRANSFERASE < 5 U/L (15-37)
[2022-03-27 10:37] LABS: BACTERIA,URINE NONE SEEN /HPF (NONE SEEN); SQUAMOUS EPITHELIAL CELL,UR FEW /HPF (NONE SEEN); WBC,URINE 0-3 /HPF (0-3)
[2022-03-27 10:50] LABS: THYROID STIMULATING HORMONE 3.311 mIU/mL (0.358-3.740)
== END 2022-03-27 23:59 | disposition home or self-care (01) ==
LOC: LAB 07:48
PROVIDERS: ATTEND Legal Medicine
DX: Z00.00 Encounter for general adult medical examination without abnormal findings (principal); E78.00 Pure hypercholesterolemia, unspecified; E11.9 Type 2 diabetes mellitus without complications; E55.9 Vitamin D deficiency, unspecified; R53.1 Weakness; E03.9 Hypothyroidism, unspecified; D64.9 Anemia, unspecified
CPT/HCPCS: 36415; 82306; 82746; 83550; 84443; 84550; 85025; 85651; 87086

== ENCOUNTER 2022-10-01 23:11 | Emergency (ER) | payer BC, OTHER ==
[~2022-10-01] VITALS: Ht 160 cm; Wt 72.6 kg
[2022-10-01] MEDS ORDERED: ASPIRIN 81 MG TAB.CHEW ONE (23:41)
[2022-10-01] MEDS ORDERED: NITROGLYCERIN 0.4 MG/TAB BOTTLE SL ONE ×2 (23:41→23:45)
[2022-10-01] MEDS ORDERED: METOPROLOL TARTRATE 5 MG/5 ML VIAL IVP ONE ×2 (23:41→23:45)
[2022-10-01] MEDS ORDERED: NITROGLYCERIN OINT 1 GM PACKET TP ONE ×2 (23:41→23:45)
[2022-10-01] MEDS ORDERED: METOPROLOL TARTRATE 50 MG TABLET ONE (23:42)
[2022-10-01] MEDS ORDERED: METOPROLOL TARTRATE 50 MG TABLET PO ONE (23:45)
[2022-10-01] MEDS ORDERED: ASPIRIN 81 MG TAB.CHEW PO ONE (23:45)
[2022-10-01] MEDS ORDERED: ONDANSETRON 4 MG/2 ML VIAL IV ONE (23:45)
[2022-10-01] MEDS ORDERED: HYDROMORPHONE 1 MG/1 ML DISP.SYRIN IV ONE (23:45)
[2022-10-01] MEDS ORDERED: ONDANSETRON 4 MG/2 ML VIAL ONE (23:56)
[2022-10-01] MEDS ORDERED: HYDROMORPHONE 1 MG/1 ML DISP.SYRIN ONE (23:56)
[2022-10-01 23:57] LABS: HEMATOCRIT 44.7 % (31.2-41.9); MEAN CORPUSCULAR HEMOGLOBIN 29.7 uug (24.7-32.8); MEAN CORPUSCULAR VOLUME 88.8 fL (75.5-95.3); PLATELET COUNT (AUTO) 197 K/uL (179-408)
[2022-10-02 00:18] LABS: ALANINE AMINOTRANSFERASE 50 U/L (14-59); ALKALINE PHOSPHATASE 132 U/L (50-136); ASPARTATE AMINOTRANSFERASE 28 U/L (15-37); BILIRUBIN,DIRECT 0.2 mg/dL (0.0-0.2); BILIRUBIN,TOTAL 0.8 mg/dL (0.2-1.0); CARBON DIOXIDE 32 mmol/L (21-32); CHLORIDE 104 mmol/L (98-107); CREATININE 0.7 mg/dL (0.6-1.3); GLUCOSE 121 mg/dL (74-106); POTASSIUM 3.3 mmol/L (3.5-5.1); TOTAL PROTEIN, SERUM 7.9 g/dL (6.4-8.2); UREA NITROGEN, BLOOD 14 mg/dL (7-18)
[2022-10-02] MEDS ORDERED: POTASSIUM BICARBONATE/CIT AC 25 MEQ TABLET.EFF ONE (00:29)
[2022-10-02] MEDS ORDERED: POTASSIUM BICARBONATE/CIT AC 25 MEQ TABLET.EFF PO ONE (00:30)
[2022-10-02] MEDS ORDERED: BLOO-1730 MC (03:36)
[2022-10-02] MEDS ORDERED: HYDR-3972 PO (03:37)
[2022-10-02] MEDS ORDERED: ONDANSETRON ODT 4 MG TAB.RAPDIS ONE (03:40)
--- NOTE | 2022-10-02 03:40 | NUR ---
Dr Lujan verbally ordered Zofran 4mg PO
[2022-10-02] MEDS ORDERED: ONDANSETRON ODT 4 MG TAB.RAPDIS SL ONE (03:45)
--- NOTE | 2022-10-02 04:12 | NUR ---
Patient discharged to home in stable condition. Written and verbal after care instructions given. Patient verbalizes understanding of instructions. Stressed follow up or return to ER for worsening s/s. Patient is a/ox4, NAD noted. patient is ambulatory with steady gait
[2022-10-02 04:15] VITALS: BP 122/76
== END 2022-10-02 04:15 | disposition home or self-care (01) ==
LOC: ER 23:17
DX: R51.9 Headache, unspecified (principal); R07.89 Other chest pain; I10 Essential (primary) hypertension; E11.9 Type 2 diabetes mellitus without complications
CPT/HCPCS: 99285; 96374; 71045; 96375; 80076; 80048; 83880; 85025; 85730; 84484 ×2; 36415 ×2; 93005; 83036; 83735; J3490; J2405; J1170; A4663; Q0162